=== PATIENT | female | born 1935 | race Caucasian/White ===

== ENCOUNTER → 2017-04-02 | Emergency (ER) | payer MEDICARE, BC ==
[~2017-04-02] MED LIST: ASPIRIN LO-DOSE81 MG PO; BUMEX1 MG PO; CO Q-10100 MG PO; COZAAR50 MG PO; HYZAAR 100-12.1 EACH PO; ICAPS TABLET1 EACH PO; LANTUS100 UNIT/1 SUB-Q; LEVAQUIN500 MG PO; LOPRESSOR25 MG PO; LYRICA75 MG PO; METOPROLOL SUCC50 MG PO; NOVOLOG100 UNIT/M SUB-Q; PHENERGAN-DM120 ML PO; PROVENTIL INH; VITAMIN D-40400 UNIT PO; VITAMIN E PO
== END | disposition disaster alternative care site (69) ==
LOC: GAMB 01:51
DX: R42 Dizziness and giddiness (principal); E11.9 Type 2 diabetes mellitus without complications; Z79.899 Other long term (current) drug therapy; Z88.2 Allergy status to sulfonamides